=== PATIENT | male | born 1980 | race Caucasian/White ===

== ENCOUNTER 2017-10-01 11:18 | Emergency (ER) | payer OTHER ==
[~2017-10-01] VITALS: Ht 185.4 cm; Wt 98.0 kg
[2017-10-01 11:27] VITALS: BP 137/82
--- NOTE | 2017-10-01 11:52 | PHYS DOC ---
Past History Past Medical History: No Pertinent History Past Surgical History: No Surgical History Smoking: Non-smoker Additional Smoking Information: Dips Alcohol Use: Occasionally Drug Use: None Adult General Chief Complaint Chief Complaint: SHOULDER INJURY [facility] HPI 37-year-old right-handed male patient complaining of right shoulder pain as a constant and throbbing pain for the last 1 month that getting worse with activity without having history of injury, focal neuro deficit, fever and chills. Patient states he does exercise on a regular basis without any new change. Patient states he was seen by chiropractor twice without change of his pain and took up to 1600 mg 3 times a day without improvement. Review of Systems Review of Systems Constitutional: Denies fever or chills [] Eyes: Denies change in visual acuity, redness, or eye pain [] HENT: Denies nasal congestion or sore throat [] Respiratory: Denies cough or shortness of breath [] Cardiovascular: No additional information not addressed in HPI [] GI: Denies abdominal pain, nausea, vomiting, bloody stools or diarrhea [] : Denies dysuria or hematuria [] Musculoskeletal: Denies back pain , reports joint pain Integument: Denies rash or skin lesions [] Neurologic: Denies headache, focal weakness or sensory changes [] Endocrine: Denies polyuria or polydipsia [] All other systems were reviewed and found to be within normal limits, except as documented in this note. Allergies Allergies Allergies Coded Allergies Type Severity Reaction Last Updated Verified No Known Drug Allergies 10/01/17 No Physical Exam Physical Exam Constitutional: Well developed, well nourished, no acute distress, non-toxic appearance. [] HENT: Normocephalic, atraumatic Eyes: PERRLA, EOMI, conjunctiva normal, no discharge. [] Neck: Normal range of motion, no tenderness, supple, no stridor. [] Cardiovascular:Heart rate regular rhythm, no murmur [] Lungs & Thorax: Bilateral breath sounds clear to auscultation [] Extremities: Right shoulder without deformity or sign of injury, no tenderness, no cyanosis, no clubbing, ROM intact, no edema. [] Neurologic: Alert and oriented X 3, normal motor function, normal sensory function, no focal deficits noted. [] Psychologic: Affect normal, judgement normal, mood normal. [] Current Patient Data Vital Signs Vital Signs Date Time Temp Pulse Resp B/P (MAP) Pulse Ox O2 Delivery O2 Flow Rate FiO2 10/01/17 11:27 Room Air 10/01/17 11:27 97.7 73 20 96 EKG EKG [] Radiology/Procedures Radiology/Procedures [][address] [id number] IMAGING REPORT Signed PATIENT: DAX LENNON ACCOUNT: [id number] : 1980 LOCATION: ER AGE: 37 SEX: M EXAM STATUS: PRE ER ORD. PHYSICIAN: HEIDI CARTER MD REASON: pain PROCEDURE: SHOULDER 2+V RIGHT Right shoulder, 3 views, 10/01/2017: HISTORY: Shoulder pain No fracture or dislocation is identified. No significant arthritic change is seen. IMPRESSION: No significant right shoulder abnormality is detected. Electronically signed by: Roscoe Hines MD (10/01/2017 12:04 PM) [facility] DICTATED AND SIGNED BY: ROSCOE HINES MD DATE: 10/01/17 1203 CC: HEIDI CARTER MD ~ Course & Med Decision Making Course & Med Decision Making Pertinent Imaging studies reviewed. (See chart for details) Evaluation of patient in ER showed 37-year-old male patient with complaining of shoulder and neck pain for 1 month. X-ray was unremarkable. Patient had injection of muscle of left shoulder and lower neck with Marcaine and felt better. Patient instructed to follow-up with his primary care physician for possible MRI and more evaluation. [] Dragon Disclaimer Dragon Disclaimer This electronic medical record was generated, in whole or in part, using a voice recognition dictation system. Departure Departure: Impression: Primary Impression: Sprain of right shoulder Disposition: HOME, SELF-CARE (at 1215) Condition: IMPROVED Patient Instructions: Shoulder Sprain Additional Instructions: Apply ice on affected area Follow-up with your primary care physician in 5-7 days for further evaluation Return to ER if not getting better Scripts Tramadol Hcl (ULTRAM) 50 Mg Tablet 50 MG PO PRN Q6HRS PRN for PAIN, #20 TAB Prov: HEIDI CARTER MD 10/01/17 Cyclobenzaprine Hcl (CYCLOBENZAPRINE HCL) 10 Mg Tablet 1 TAB PO TID, #30 TAB Prov: HEIDI CARTER MD 10/01/17 HEIDI CARTER MD Oct 01, 2017 11:52
--- NOTE | 2017-10-01 12:07 | RAD ---
Right shoulder, 3 views, 10/01/2017: HISTORY: Shoulder pain No fracture or dislocation is identified. No significant arthritic change is seen. IMPRESSION: No significant right shoulder abnormality is detected. Electronically signed by: Roscoe Hines MD (10/01/2017 12:04 PM) [facility]
[2017-10-01] MEDS ORDERED: CYCL-331 PO (12:18)
[2017-10-01] MEDS ORDERED: TRAM-48 PO (12:18)
== END 2017-10-01 12:30 | disposition home or self-care (01) ==
LOC: ER 11:18
DX: S43.401A Unspecified sprain of right shoulder joint, initial encounter (principal); F17.200 Nicotine dependence, unspecified, uncomplicated; X58.XXXA Exposure to other specified factors, initial encounter; Y93.89 Activity, other specified; Y99.8 Other external cause status; Y92.89 Other specified places as the place of occurrence of the external cause
CPT/HCPCS: 73030; 99284